=== PATIENT | male | born 1965 ===

== ENCOUNTER 2024-05-04 11:43 | Emergency (ER) | payer MEDICAID ==
[~2024-05-04] VITALS: Ht 177.8 cm; Wt 68.0 kg
[2024-05-04 12:07] VITALS: BP 141/106; RESP 18; TEMP 97.7; O2SAT 98
[2024-05-04 12:16] VITALS: PULSE 89
== END 2024-05-04 14:28 | disposition left against medical advice (07) ==
LOC: ER 11:43
DX: M79.604 Pain in right leg (principal); Z53.21 Procedure and treatment not carried out due to patient leaving prior to being seen by health care provider

== ENCOUNTER 2024-05-06 15:20 | Emergency (ER) | payer MEDICAID ==
[~2024-05-06] VITALS: Ht 188 cm; Wt 75.0 kg
[2024-05-06 15:27] VITALS: O2SAT 97
[2024-05-06 16:11] LABS: CLARITY URINE CLEAR (CLEAR); COLOR URINE YELLOW (YELLOW); GLUCOSE URINE NEGATIVE (NEGATIVE); KETONES URINE NEGATIVE (NEGATIVE); LEUKOCYTE ESTERASE URINE 2+ (NEGATIVE); NITRITE URINE NEGATIVE (NEGATIVE); OCCULT BLOOD URINE 2+ (NEGATIVE); PH URINE 5.5 (4.5-8.0); PROTEIN URINE TRACE (NEGATIVE); SPECIFIC GRAVITY URINE 1.022 (1.005-1.030); UROBILINOGEN URINE 0.2 E.U./dL (0.2-1.0)
[2024-05-06] MEDS ORDERED: SULF1TAB48 MT (16:16)
[2024-05-06] MEDS: SULFAMETHOXAZOLE/TRIMETHOPRIM 400/80MG TAB PO ONE (16:38)
[2024-05-06] MEDS: KETOROLAC 30MG/ML VIAL IM ONE (16:38)
[2024-05-06 16:48] LABS: WBC URINE 25-50 /hpf (0-2)
[2024-05-06 16:49] LABS: BACTERIA URINE TRACE; SQUAMOUS EPITHELIAL CELL URINE RARE /lpf (RARE/1+)
[2024-05-06 17:06] VITALS: BP 117/60; PULSE 81; RESP 20; TEMP 98.5
== END 2024-05-06 17:05 | disposition home or self-care (01) ==
LOC: ER 15:20
DX: L03.115 Cellulitis of right lower limb (principal); Z98.890 Other specified postprocedural states; Z88.0 Allergy status to penicillin
CPT/HCPCS: 99283; 81003; 87086; 96372; J1885